=== PATIENT | male | born 2000 | race American Indian/Alaskan Native ===

== ENCOUNTER → 2021-08-22 | Outpatient (CLI) | payer OTHER | LOC: EDSEX 11:30 → M CARPUL 11:31 | PROVIDERS: ATTEND Internal Medicine Cardiovascular Disease | DX: R94.31 Abnormal electrocardiogram [ECG] [EKG] (principal) ==

== ENCOUNTER 2024-03-05 12:18 | Day surgery (SDC) | payer OTHER ==
[~2024-03-05] VITALS: Ht 185.4 cm; Wt 109.9 kg
[~2024-03-05 12:18] MED LIST: TRANEXAMIC ACID 100 MG/ML 10ML VIAL IV ONE
[2024-03-05] MEDS: LR 1,000 ML IV SCH (13:22)
[2024-03-05] MEDS ORDERED: LIDOCAINE 2% 100MG/5ML SDV (FOR ANES.) As Ordered ONE (13:56)
[2024-03-05] MEDS ORDERED: propofoL 200 MG/20 ML VIAL As Ordered ONE (13:58)
[2024-03-05] MEDS ORDERED: ROCURONIUM BROMIDE 50MG/5ML VIAL As Ordered ONE (13:58)
[2024-03-05] MEDS: ROPIvacaine 0.5% 30ML VIAL PN ONE (14:35)
[2024-03-05] MEDS ORDERED: fentaNYL 100 MCG/2 ML INJECTION As Ordered ONE (14:36)
[2024-03-05] MEDS: MIDAZOLAM INJ 2MG/2ML VIAL IV PRN (14:51)
[2024-03-05] MEDS: fentaNYL 100 MCG/2 ML INJECTION IV PRN (14:51)
[2024-03-05] MEDS ORDERED: ACETAMINOPHEN 1000MG 100ML IV BAG As Ordered ONE (15:08)
[2024-03-05] MEDS: ceFAZolin SOD 2 GM in IV 1 EA IV ONE (15:45)
[2024-03-05] MEDS: TRANEXAMIC ACID 100 MG/ML 10ML VIAL As Ordered ONE (16:00)
[2024-03-05] MEDS: EPINEPHrine 1MG/ML INJ 30ML MD-VIAL As Ordered ONE (16:25)
[2024-03-05] MEDS: LIDOCAINE W/EPINEPHRINE 1% 20ML VIAL As Ordered ONE (16:50)
[2024-03-05] MEDS ORDERED: METOPROLOL 5 MG/5 ML VIAL As Ordered ONE (17:13)
[2024-03-05] MEDS ORDERED: ONDANSETRON 4MG 2ML VIAL As Ordered ONE (18:03)
[2024-03-05] MEDS: VANCOMYCIN 1000MG/20ML VIAL As Ordered ONE (18:20)
[2024-03-05] MEDS: LIDOCAINE 1% MDV 20ML VIAL As Ordered ONE (18:20)
[2024-03-05] MEDS ORDERED: fentaNYL 100 MCG/2 ML INJECTION IV PRN (18:25)
[2024-03-05] MEDS ORDERED: LR 1,000 ML IV SCH (18:25)
[2024-03-05] MEDS: oxyCODONE 5MG TAB PO PRN (18:54)
[2024-03-05] MEDS: ONDANSETRON 4MG 2ML VIAL IV PRN (18:54)
[2024-03-05] MEDS: HYDROMORPHONE HCL 0.5 MG/ 0.5 ML SYRINGE IV PRN (18:55)
[2024-03-05 19:30] VITALS: BP 155/84; TEMP 97.1; O2SAT 97
== END 2024-03-05 20:00 | disposition home or self-care (01) ==
LOC: M SDC 12:18
PROVIDERS: ATTEND Orthopaedic Surgery
DX: M19.011 Primary osteoarthritis, right shoulder (principal)
CPT/HCPCS: 23120; 29805; 64415; J0131; J0171; J0690; J1100; J1171; J2250; J2405; J3010; J3370

== ENCOUNTER → 2024-06-25 | Outpatient (CLI) | payer OTHER ==
[2024-06-25 15:38] LABS: HIV 1&2 SCREEN NEGATIVE (NEGATIVE)
[2024-06-25 15:45] LABS: HEPATITIS C VIRUS ABY INDEX 0.13 INDEX (<0.8)
== END ==
LOC: M LAB 13:49
PROVIDERS: ATTEND Physician Assistant Medical
DX: Z11.3 Encounter for screening for infections with a predominantly sexual mode of transmission (principal)